=== PATIENT | female | born 1995 | race Caucasian/White ===

== ENCOUNTER 2016-10-27 05:51 | Inpatient (IN) | payer OTHER ==
[2016-10-27] MEDS ORDERED: LIDOCAINE 1% (PF) 10 MG/ML (30 ML SDV) SQ PRN (06:00)
[2016-10-27] MEDS ORDERED: OXYTOCIN 10 UNIT/ML 1 ML VIAL IM PRN (06:00)
[2016-10-27] MEDS ORDERED: CARBOPROST TROMETHAMINE 250 MCG/ML 1 ML AMP IM PRN (06:00)
[2016-10-27] MEDS ORDERED: TERBUTALINE 1 MG/ML VIAL SQ PRN (06:00)
[2016-10-27] MEDS ORDERED: LACTATED RINGERS 1,000 ML IV SCH (06:00)
[2016-10-27] MEDS ORDERED: METHYLERGONOVINE 0.2 MG/ML 1 ML AMP IM PRN (06:00)
[2016-10-27] MEDS ORDERED: OXYTOCIN 30 UNITS/500 ML NS 30 UNIT in SALINE 1 500ML.BAG IV SCH (06:00)
[2016-10-27 06:07] VITALS: BMI 38.8
[2016-10-27] MEDS: LACTATED RINGERS 1,000 ML IV SCH ×2 (06:07→09:04)
[2016-10-27 06:32] LABS: Basophils % (A) 0 %; CH 28.7; CHCM 31.7; Eosinophils # (A) 0.3 k/uL (0-0.7); Eosinophils % (A) 2 %; HCT 34.6 % (34.0-46.0); HDW 3.08; HGB 10.9 gm/dL (11.4-16.0); Hypochromasia Slight; Luc # (Auto) 0.31; Luc % (Auto) 2; Lymphocytes # (A) 2.2 k/uL (1.0-4.8); Lymphocytes % (A) 13 %; MCH 28.8 pg (25.0-35.0); MCHC 31.7 g/dL (31.0-37.0); MCV 90.8 fL (80.0-100.0); Mean Platelet Volume 9.5; Monocytes # (A) 0.9 k/uL (0-1.0); Monocytes % (A) 5 %; Neutrophils # (A) 13.3 k/uL (1.3-7.7); Neutrophils % (A) 78 %; RBC 3.81 m/uL (3.80-5.40); RDW 14.5 % (11.5-15.5); WBC 17.1 k/uL (3.8-10.6); WBC (Perox) 18.11
--- NOTE | 2016-10-27 06:57 | P.HPOB ---
History of Present Illness Chief Complaint: Here for elective induction of labor This is a 21-year-old white female 2 para 1001 EDC 11/01/2016 at 39-2/7 weeks' gestation. Patient presents today for elective induction of labor, uncomfortable, favorable multiparous cervix. essentially unremarkable , please see below. Fetus has been active throughout the . Patient smoked on her way and today. She denies vaginal bleeding or fluid leakage. Past obstetric history is significant for late care. Blood type O positive, rubella status immune. Antibody screen, Pap smear, gonorrhea and chlamydia cultures, urine culture, group B strep cultures all negative. One- hour Glucola 143, 3 hour GTT within normal limits. Past medical history is essentially negative. Past surgical history is also negative. Current medications vitamins daily, Claritin as needed. ALLERGIES include penicillin to which reports a rash and hives, along with seasonal ALLERGIES. Family history is significant for insulin-dependent diabetes and anemia. Social history patient is a smoker, currently one half pack per day, she is single, denies alcohol or drug use. On exam this is a pleasant young female, 5 foot 7 inches, 248 pounds, blood pressure 133/78, patient is afebrile. The general physical exam is within normal limits. The extremities reveal no edema. The chest is clear. Cervix is 3-4 cm dilated, 60% effaced, -2 station, vertex presentation, soft, mid position. Artificial amniorrhexis reveals clear fluid. heart rate is in the 140s with accelerations. Patient is having spontaneous contractions approximately every 3-4 minutes apart of very mild intensity. Impression: 39-2/7 weeks intrauterine , here for elective induction of labor. Smoking history noted. Late care noted. Plan: Oxytocin per hospital protocol. Close maternal and surveillance. Anticipating normal spontaneous vaginal delivery. Review of Systems Negative except as in HPI Past Medical History Past Medical History: No Reported History History of Any Multi-Drug Resistant Organisms: None Reported Past Surgical History: No Surgical Hx Reported Past Anesthesia/Blood Transfusion Reactions: No Reported Reaction Past Psychological History: No Psychological Hx Reported Smoking Status: Current every day smoker Past Alcohol Use History: None Reported Past Drug Use History: None Reported - Past Family History Father Family Medical History: Hypertension Medications and Allergies Home Medications Medication Instructions Recorded Confirmed Type Pnv with Ca,No.72/Iron/FA 1 tab PO DAILY 11/15/15 10/27/16 History [ Plus Tablet] Ranitidine HCl [Zantac] 150 mg PO HS 11/15/15 10/27/16 History Allergies Allergy/AdvReac Type Severity Reaction Status Date / Time Penicillins Allergy Rash/Hives Verified 11/15/15 23:53 Exam - Vital Signs Vital signs: Vital Signs Temp Pulse Resp BP Pulse Ox 10/27/16 06:02 97.3 F L 123 H 16 133/78 100 Intake and Output 10/26/16 10/26/16 10/27/16 14:59 22:59 06:59 Other: # Voids 1 Weight 112.491 kg Patient Weight 10/27/16 06:59 Weight 112.491 kg See dictation, please Results Result Diagrams: 10/27/16 06:10 Abnormal Lab Results - Last 24 Hours (Table) 10/27/16 Range/Units 06:10 WBC 17.1 H (3.8-10.6) k/uL Hgb 10.9 L (11.4-16.0) gm/dL Neutrophils # 13.3 H (1.3-7.7) k/uL Assessment and Plan Plan: Close maternal and surveillance. Oxytocin per hospital protocol. Anticipate normal spontaneous vaginal delivery. Time with Patient: Less than 30
[2016-10-27] MEDS ORDERED: BUPIVACAINE (PF) 0.25% 30 ML VIAL ONE (08:37)
[2016-10-27] MEDS ORDERED: fentaNYL (PF) 50 MCG/ML 5 ML AMP ONE (08:37)
[2016-10-27] MEDS ORDERED: SODIUM CHLORIDE 0.9% 100 ML BAG ONE (08:37)
[2016-10-27] MEDS ORDERED: BUPIVACAINE (PF) 0.25% 25 ML, fentaNYL (PF) 200 MCG in SODIUM CHLORIDE 0.9% 71 ML EPIDURAL ONE (08:51)
[2016-10-27] MEDS ORDERED: LANOLIN CREAM 5 GM TUBE TOPICAL PRN (14:15)
[2016-10-27] MEDS ORDERED: diphenhydrAMINE 50 MG CAP PO PRN (14:15)
[2016-10-27] MEDS ORDERED: WITCH HAZEL 1 EACH MED..PAD TOPICAL PRN (14:15)
[2016-10-27] MEDS ORDERED: ZOLPIDEM 5 MG TAB PO PRN (14:15)
[2016-10-27] MEDS ORDERED: BENZOCAINE/MENTHOL SPRAY 1 GM/SPRAY AEROSOL TOPICAL PRN (14:15)
[2016-10-27] MEDS ORDERED: ACETAMINOPHEN TAB 325 MG TAB PO PRN (14:15)
[2016-10-27] MEDS ORDERED: SIMETHICONE 80 MG CHEWABLE PO PRN (14:15)
[2016-10-27] MEDS ORDERED: diphenhydrAMINE 25 MG CAP PO PRN (14:15)
[2016-10-27] MEDS ORDERED: HYDROCORTISONE 2.5% RECTAL CREAM 30 GM TUBE RECTAL PRN (14:15)
[2016-10-27] MEDS ORDERED: diphenhydrAMINE 50 MG/ML 1 ML VIAL IVP PRN ×2 (14:15)
[2016-10-27] MEDS ORDERED: Acetaminophen-Codeine 300-30mg TAB PO PRN (14:15)
--- NOTE | 2016-10-27 14:15 | P.PROBDLV ---
Vaginal Delivery Note - . Vaginal Delivery Note: This is a 21-year-old white female 2 para 1001 EDC 11/01/2016 at 39-2/7 weeks' gestation. Patient presented for induction for favorable multiparous cervix, actually in early latent phase labor. Fetus is been active throughout the . She denied fluid leakage or vaginal bleeding. Blood type O positive, rubella status immune, group B strep cultures negative. is significant for late care, please see my dictated history and physical for details. Artificial amniorrhexis revealed clear fluid. Oxytocin was started and titrated per hospital protocol. Epidural was requested and placed. She progressed well through the first stage of labor and became completely dilated at 1339 hrs. Second stage of labor then commenced. Perineal body was prepped and draped in usual sterile fashion. The infant's head delivered occiput anterior and she restituted accordingly. There was no nuchal cord noted. The left or anterior shoulder was gently and easily delivered from underneath the pubic symphysis at which time the oropharynx, nasopharynx and external nares were all bulb suctioned on the perineal body. Patient was officially delivered of a liveborn female infant at 1339 hours. Umbilical cord was doubly clamped and ligated, she was handed to waiting nurses for evaluation where scores of 9 and 9 at one and 5 minutes respectively were given. Placenta delivered spontaneously, it was inspected and noted to be intact with trivascular cord at 1402 hrs. Uterus was massaged, firm midline and symmetric, 18 week size. Inspection of the cervix, vagina, perineum, perirectal and periurethral areas revealed no lacerations and no defects, no suturing was needed. weighed 8 lbs. 1 oz. or 3660 g. Estimated blood loss 350 mL's. All sponge needle and enhancement counts are correct at the end of the procedure. Patient and her family are allowed to begin the bonding experience in the LDR.
[2016-10-27] MEDS: IBUPROFEN 600 MG TAB PO PRN ×2 (17:42→23:29)
[2016-10-27] MEDS: SENNOSIDES-DOCUSATE SODIUM 1 EACH TAB PO SCH (19:31)
[2016-10-27] MEDS: OXYTOCIN 30 UNITS/500 ML NS 30 UNIT in SALINE 1 500ML.BAG IV SCH (19:51)
--- NOTE | 2016-10-28 07:33 | P.DS ---
Providers Date of admission: 10/27/16 05:51 Expected date of discharge: 10/28/16 Attending physician: Candelaria Lew Primary care physician: [facility] Hospital Course: This is a 21-year-old white female 2 para 1001 EDC 11/01/2016 at 39-2/7 weeks' gestation. Patient presented for induction with favorable multiparous cervix at term. was remarkable for late care, negative group B strep cultures, please see dictated H&P for details. Artificial amniorrhexis revealed clear fluid. Patient went on to swiftly deliver a liveborn female infant with scores of 9 and 9 at one and 5 minutes respectively. weight 8 lbs. 1 oz. or 3660 g. There were no lacerations or defects that required suturing. Estimated blood loss 350 mL's. Please see my dictated delivery note for details. This morning the patient is doing well. She is voiding, ambulating and passing flatus without difficulty. Vital signs are stable and she is afebrile. Fundus is firm and below the umbilicus, symmetric and 18 week size. Minimal to moderate lochia rubra is noted. [place] infant is doing well. Patient is being discharged home today in very good condition. She will follow- up in the office with me in 6 weeks. I have reminded her no intercourse tampons or douching. She will use [id number] ibuprofen products as needed for pain, 200 mg pills, 3 every 6 hours as needed. I have reminded her to continue taking her vitamin daily. We have discussed options for contraception and we will discuss this further in the office. She is showing no signs of depression at this time. Patient Condition at Discharge: Good Plan - Discharge Summary Discharge Medication List Pnv with Ca,No.72/Iron/FA [ Plus Tablet] 1 tab PO DAILY 11/15/15 [ History] Ranitidine HCl [Zantac] 150 mg PO HS 11/15/15 [History] Follow up Appointment(s)/Referral(s): Candelaria Lew MD [STAFF PHYSICIAN] - 6 Weeks Discharge Disposition: HOME SELF-CARE
[2016-10-28] MEDS: SENNOSIDES-DOCUSATE SODIUM 1 EACH TAB PO SCH (07:37)
[2016-10-28] MEDS: IBUPROFEN 600 MG TAB PO PRN ×2 (07:37→12:49)
[2016-10-28 12:53] VITALS: BP 121/63; PULSE 84; RESP 18; TEMP 98
== END 2016-10-28 15:33 | disposition home or self-care (01) | DRG 775 ==
LOC: 4FBP 05:51
PROVIDERS: ADMIT Obstetrics & Gynecology; ATTEND Obstetrics & Gynecology
PROC: 3E0R3CZ (ICD-10-PCS; principal; 2016-10-27)
PROC: 10907ZC Drainage of Amniotic Fluid, Therapeutic from Products of Conception, Via Natural or Artificial Opening (ICD-10-PCS; principal; 2016-10-27)
PROC: 3E033VJ Introduction of Other Hormone into Peripheral Vein, Percutaneous Approach (ICD-10-PCS; principal; 2016-10-27)
PROC: 00HU33Z Insertion of Infusion Device into Spinal Canal, Percutaneous Approach (ICD-10-PCS; principal; 2016-10-27)
PROC: 10E0XZZ Delivery of Products of Conception, External Approach (ICD-10-PCS; principal; 2016-10-27)
DX: O99.334 Smoking (tobacco) complicating childbirth (principal); F17.200 Nicotine dependence, unspecified, uncomplicated; Z88.0 Allergy status to penicillin; O09.33 Supervision of pregnancy with insufficient antenatal care, third trimester; Z37.0 Single live birth; Z3A.39 39 weeks gestation of pregnancy
CPT/HCPCS: 85025; 88307